=== PATIENT | male | born 1995 | race Two or more races ===

== ENCOUNTER 2019-09-15 20:26 | Emergency (ER) | payer BC ==
[~2019-09-15] VITALS: Ht 167.6 cm; Wt 79.4 kg
[2019-09-15 20:26] VITALS: BP 162/86
== END 2019-09-15 21:25 | disposition home or self-care (01) ==
LOC: ER 20:30
DX: B99.9 Unspecified infectious disease (principal); H10.89 Other conjunctivitis; F17.200 Nicotine dependence, unspecified, uncomplicated

== ENCOUNTER 2022-06-10 08:59 | Emergency (ER) | payer BC, MEDICAID ==
[~2022-06-10] VITALS: Ht 170.2 cm; Wt 81.6 kg
[2022-06-10 09:14] VITALS: BP 137/80
== END 2022-06-10 09:26 | disposition home or self-care (01) ==
LOC: ER 09:07
DX: H11.32 Conjunctival hemorrhage, left eye (principal); F17.200 Nicotine dependence, unspecified, uncomplicated

== ENCOUNTER 2022-10-18 20:50 | Emergency (ER) | payer MEDICAID ==
[~2022-10-18] VITALS: Ht 170.2 cm; Wt 74.8 kg
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
--- NOTE | 2022-10-18 21:32 | NUR ---
[facility] [place] AT BEDSIDE
[2022-10-18 22:21] VITALS: BP 141/76
--- NOTE | 2022-10-18 22:21 | NUR ---
Patient discharged to home in stable condition. Written and verbal after care instructions given. Patient verbalizes understanding of instruction. Pt is ambulatory with a steady gait
== END 2022-10-18 22:22 | disposition home or self-care (01) ==
LOC: ER 20:51
DX: S66.911A Strain of unspecified muscle, fascia and tendon at wrist and hand level, right hand, initial encounter (principal); S96.912A Strain of unspecified muscle and tendon at ankle and foot level, left foot, initial encounter; S16.1XXA Strain of muscle, fascia and tendon at neck level, initial encounter; S90.02XA Contusion of left ankle, initial encounter; F17.200 Nicotine dependence, unspecified, uncomplicated; V29.99XA Rider (driver) (passenger) of other motorcycle injured in unspecified traffic accident, initial encounter; Y93.89 Activity, other specified; Y92.89 Other specified places as the place of occurrence of the external cause; Y99.8 Other external cause status
CPT/HCPCS: 73110; 73610-TC

== ENCOUNTER 2024-01-29 08:22 | Emergency (ER) | payer MEDICAID, OTHER ==
[~2024-01-29] VITALS: Ht 167.6 cm; Wt 82.6 kg
[2024-01-29 08:36] VITALS: BP 141/84; TEMP 98.6
[2024-01-29 10:53] VITALS: O2SAT 98
== END 2024-01-29 10:53 | disposition home or self-care (01) ==
LOC: ER 08:26
DX: M25.522 Pain in left elbow (principal); F17.200 Nicotine dependence, unspecified, uncomplicated
CPT/HCPCS: 73080-TC